=== PATIENT | male | born 1955 | race Caucasian/White ===

== ENCOUNTER 2022-02-22 17:18 | Emergency (ER) | payer MEDICARE, OTHER ==
[~2022-02-22] VITALS: Ht 185.4 cm; Wt 106.2 kg
[2022-02-22] MEDS ORDERED: METFORMIN HCL500 MG PO (17:32)
[2022-02-22] MEDS ORDERED: LANTUS 3ML100 UNITS/ (17:32)
[2022-02-22] MEDS ORDERED: TRULICITY1.5 MG/0.5 (17:32)
[2022-02-22] MEDS ORDERED: KETOROLAC TROME10 MG PO (18:42)
== END 2022-02-22 18:51 | disposition home or self-care (01) ==
LOC: FSED 17:30
DX: S22.43XA Multiple fractures of ribs, bilateral, initial encounter for closed fracture (principal); W18.39XA Other fall on same level, initial encounter; Y92.89 Other specified places as the place of occurrence of the external cause; E11.9 Type 2 diabetes mellitus without complications; Z85.46 Personal history of malignant neoplasm of prostate; Z85.51 Personal history of malignant neoplasm of bladder
CPT/HCPCS: 71250; 99283

== ENCOUNTER 2022-04-01 17:05 | Emergency (ER) | payer MEDICARE, OTHER ==
[~2022-04-01] VITALS: Ht 185.4 cm; Wt 106.1 kg
[~2022-04-01 17:05] MED LIST: KETOROLAC TROME10 MG PO; LANTUS 3ML100 UNITS/; METFORMIN HCL500 MG PO; TRULICITY1.5 MG/0.5
[2022-04-01] MEDS ORDERED: NAPROSYN500 MG PO (18:00)
[2022-04-01] MEDS ORDERED: ULTRAM 50MG50 MG PO (18:01)
== END 2022-04-01 18:49 | disposition home or self-care (01) ==
LOC: FSED 17:13
DX: M25.551 Pain in right hip (principal); E11.9 Type 2 diabetes mellitus without complications; Z85.46 Personal history of malignant neoplasm of prostate; Z85.51 Personal history of malignant neoplasm of bladder
CPT/HCPCS: 99283